=== PATIENT | female | born 1965 | race Caucasian/White ===

== ENCOUNTER 2017-07-20 22:23 | Emergency (ER) | payer SELFPAY ==
[~2017-07-20] VITALS: Ht 154.9 cm; Wt 45.0 kg
[2017-07-20 22:25] VITALS: BP 125/82
== END 2017-07-21 | disposition left against medical advice (07) ==
LOC: ER 22:33
DX: Z53.21 Procedure and treatment not carried out due to patient leaving prior to being seen by health care provider (principal)